=== PATIENT | male | born 1975 | race Caucasian/White ===

== ENCOUNTER 2023-08-04 12:51 | Emergency (ER) | payer OTHER, SELFPAY ==
[2023-08-04 13:02] VITALS: BP 131/86; PULSE 103; RESP 16; TEMP 36.7; O2SAT 98
[2023-08-04 13:11] LABS: Glucose Point of Care > 600 mg/dL (70-110)
[2023-08-04 13:23] LABS: Basophils # 0.1 10^3/uL (0.0-0.1); Basophils % 0.9 %; Eosinophils # 0.2 10^3/uL (0.0-0.8); Eosinophils % 2.6 %; Hematocrit 39.5 % (37-53); Lymphocytes # 1.2 10^3/uL (0.8-4.8); Lymphocytes % 21.1 %; Mean Corpuscular HGB Conc 32.2 g/dL (30-55); Mean Corpuscular Hemoglobin 23.1 pg (27-33); Mean Corpuscular Volume 71.9 fl (82-101); Monocytes # 0.4 10^3/uL (0.2-0.9); Monocytes % 6.9 %; Neutrophils # 3.92 10^3/uL (1.8-7.7); Neutrophils % 67.8 %; Nucleated Red Blood Cells % 0 %; Platelet Count 256 10^3/cmm (157-399); Red Blood Count 5.49 10^6/uL (3.85-5.65); White Blood Count 5.78 10^3/uL (3.29-11.43)
[2023-08-04 13:36] LABS: Ketone (Acetest) Serum Negative (Negative)
--- NOTE | 2023-08-04 13:39 | PC.NURSE ---
pt brought to room 12 @1330, fluids delayed d/t not being in room
[2023-08-04 13:42] LABS: Alanine Aminotransferase 71 U/L (0-41); Albumin Level 4.6 g/dL (3.5-5.2); Alkaline Phosphatase 105 U/L (40-130); Aspartate Amino Transferase 40 U/L (0-40); Blood Urea Nitrogen 25 mg/dL (6-20); Carbon Dioxide 24 mmol/L (22-29); Chloride 89 mmol/L (98-107); Creatinine Clr Calc Pharmacy 84.5583; Globulin 3.4 g/dL (1.3-4.6); Glomerular Filtration Rate 64.1 mL/min (90-130); Osmolality Calculated 293 mOsm/kg (285-295); Sodium 125 mmol/L (136-145); Total Bilirubin 0.2 mg/dL (0.15-1.2)
[2023-08-04 13:48] LABS: Glucose Point of Care > 600 mg/dL (70-110)
[2023-08-04 13:50] LABS: Glucose 614 mg/dL (65-115)
[2023-08-04] MEDS: sodium chloride 0.9% 1,000 ML 999 ML IV (13:50)
[2023-08-04] MEDS: insulin regular-human 100 units/1 mL 14 UNIT IVP (14:04)
[2023-08-04 14:08] LABS: ABG PCO2 34.8 mmHg (35-45); ABG PH Result 7.43 (7.35-7.45); Alveolar-Arterial Oxygen Gradi 3.5 mmHg (5-10); Arterial Blood Gas Hematocrit 35.4 % (42-52); Base Excess ABG -0.8 mmol/L (-2.0-2.0); Blood Gas Allen Test Pos; Blood Gas Operator Identificat glc; Blood Gas Sample Site Radial, left; Blood Gas Sample Type Arterial; Carboxyhemoglobin 1.3 %THgb (0.4-20.1); HCO3 ABG 23.1 mmol/L (22-26); HGB O2 Sat 94.7 % (95-100); Ionized Calcium Level - ABG 1.1 mmol/L (1.1-1.4); Methemoglobin 0.4 % (0.4-1.5); Oxygen Saturation ABG 96.4; PO2 ABG 78.9 mmHg (80.0-100.0); PO2 FiO2 Ratio Arterial Blood 0; Potassium Level - ABG 4.8 mmol/L (3.5-5.0); Total Hemoglobin 11.6 g/dL (14-18)
--- NOTE | 2023-08-04 14:13 | W.ED.RECABL ---
HPI - Recheck/Abnormal Lab/Rx General: Chief Complaint: Recheck/Abnormal Lab/Rx Stated Complaint: high blood sugar, low sodium, doctor referral Time Seen by Provider: 08/04/23 13:43 Source: patient Mode of arrival: ambulatory History of Present Illness: 48-year-old male presents emergency room structures primary care doctor he was hyponatremic and severely hyperglycemic state been monitoring him and is not primary care doctor's office for impaired glucose tolerance and diabetes blood sugars have generally been good. He recently has had polyphagia polydipsia and polyuria he has not had any abdominal pain nausea or vomiting he is not date of Service: Antihyperglycemic's. Review of Systems Const: Denies: fever(s) or chills Card: Denies: chest pain Resp: Denies: dyspnea GI: Denies: abdominal pain : Denies: dysuria, urinary frequency or urinary urgency Musc: Denies: neck pain or back pain Skin/Breast: Denies: rash Physical Exam Const: COMMON NORMALS: no acute distress GENERAL APPEARANCE: cooperative and comfortable ORIENTATION/CONSCIOUSNESS: Yes awake, Yes oriented to person, Yes oriented to place and Yes oriented to time HENMT: COMMON NORMALS: normocephalic, atraumatic and hearing grossly normal bilaterally HEAD & SCALP: normocephalic and atraumatic Resp: COMMON NORMALS: normal respiratory effort, No retractions, No use of accessory muscles and clear to auscultation bilaterally AUSCULTATION: clear to auscultation bilaterally Cardio: COMMON NORMALS: regular rate, regular rhythm and No murmurs present (Cardio) RATE: regular rate RHYTHM: regular rhythm GI: COMMON NORMALS: Soft to palpation and No hepatosplenomegaly present AUSCULTATION: Yes normoactive bowel sounds PALPATION: Yes Soft to palpation, No Tenderness to palpation present (GI), No Guarding due to palpation present (GI) and Yes No hepatosplenomegaly present Extremity: COMMON NORMALS: normal to inspection, capillary refill normal, no clubbing, cyanosis or edema, no calf tenderness and no pedal edema Neuro: SENSORIUM/ORIENTATION: Yes oriented to person, Yes oriented to place and Yes oriented to time Skin: COMMON NORMALS: no rashes or lesions noted GENERAL SKIN EXAM: no rashes or lesions noted Course Vital Signs: Vital signs: Vital Signs Temperature 98.0 F 08/04/23 13:02 Pulse Rate 103 H 08/04/23 13:02 Respiratory Rate 16 08/04/23 13:02 Blood Pressure 131/86 08/04/23 13:02 Pulse Oximetry 95 08/04/23 17:19 Oxygen Delivery Me thod Room Air 08/04/23 13:02 MDM - Recheck/Abnormal Lab/Rx Medical Decision Making Sodium corrects to 133 based on his hyperglycemia he is feeling well given fluids and insulin his blood sugars down to a little over 300 discussed findings with him he would really prefer to go home his anion gap is normal his ketones are negative his ABG was unremarkable for DKA. Will start the patient on Trulicity 0.75 weekly extended release metformin 500 once a day I called and talked to his primary care doctor they will make further arrangements for his blood glucose. Medical Records I reviewed the patient's medical records. Lab Data I reviewed the patient's lab results. 08/04/23 12:59 08/04/23 12:59 Laboratory Results WBC 5.78 10^3/uL (3.29-11.43) 08/04/23 12:59 RBC 5.49 10^6/uL (3.85-5.65) 08/04/23 12:59 Hgb 12.70 g/dL (11.27-16.99) 08/04/23 12:59 Hct 39.5 % (37-53) 08/04/23 12:59 MCV 71.9 fl (82-101) L 08/04/23 12:59 MCH 23.1 pg (27-33) L 08/04/23 12:59 MCHC 32.2 g/dL (30-55) 08/04/23 12:59 RDW 14.0 % (12.1-15.1) 08/04/23 12:59 Plt Count 256 10^3/cmm (157-399) 08/04/23 12:59 MPV 10.0 fL (7.4-10.4) 08/04/23 12:59 Neut % (Auto) 67.8 % 08/04/23 12:59 Lymph % (Auto) 21.1 % 08/04/23 12:59 [place] % (Auto) 6.9 % 08/04/23 12:59 Eos % (Auto) 2.6 % 08/04/23 12:59 Baso % (Auto) 0.9 % 08/04/23 12:59 Neut # (Auto) 3.92 10^3/uL (1.8-7.7) 08/04/23 12:59 Lymph # (Auto) 1.2 10^3/uL (0.8-4.8) 08/04/23 12:59 [place] # (Auto) 0.4 10^3/uL (0.2-0.9) 08/04/23 12:59 Eos # (Auto) 0.2 10^3/uL (0.0-0.8) 08/04/23 12:59 Baso # (Auto) 0.1 10^3/uL (0.0-0.1) 08/04/23 12:59 Nucleated RBC % (auto) 0 % 08/04/23 12:59 Nucleated RBCs # 0.0 /100WBC 08/04/23 12:59 Specimen Type Arterial 08/04/23 13:58 Sample Site Radial, left 08/04/23 13:58 ABG pH 7.43 (7.35-7.45) 08/04/23 13:58 ABG pCO2 34.8 mmHg (35-45) L 08/04/23 13:58 ABG pO2 78.9 mmHg (80.0-100.0) L 08/04/23 13:58 ABG PO2/FiO2 Ratio 0 08/04/23 13:58 ABG HCO3 23.1 mmol/L (22-26) 08/04/23 13:58 ABG O2 Saturation 96.4 08/04/23 13:58 ABG Base Excess -0.8 mmol/L (-2.0-2.0) 08/04/23 13:58 Lukas Test Pos 08/04/23 13:58 A-a O2 Gradient 3.5 mmHg (5-10) L 08/04/23 13:58 Hematocrit 35.4 % (42-52) L 08/04/23 13:58 Hgb O2 Saturation 94.7 % (95-100) L 08/04/23 13:58 Carboxyhemoglobin 1.3 %THgb (0.4-20.1) 08/04/23 13:58 Methemoglobin 0.4 % (0.4-1.5) 08/04/23 13:58 Total Hemoglobin 11.6 g/dL (14-18) L 08/04/23 13:58 Sodium 130.0 mmol/L (131-143) L 08/04/23 13:58 Potassium 4.8 mmol/L (3.5-5.0) 08/04/23 13:58 Glucose 563.0 mg/dL (70-115) H 08/04/23 13:58 Ionized Calcium 1.1 mmol/L (1.1-1.4) 08/04/23 13:58 O2 Delivery Device None 08/04/23 13:58 FiO2 21.0 % 08/04/23 13:58 Telecommunications Consultant ID glc 08/04/23 13:58 Sodium 125 mmol/L (136-145) L 08/04/23 12:59 Potassium 5.0 mmol/L (3.5-5.1) 08/04/23 12:59 Chloride 89 mmol/L (98-107) L 08/04/23 12:59 Carbon Dioxide 24 mmol/L (22-29) 08/04/23 12:59 Anion Gap 17.0 (5-19) 08/04/23 12:59 BUN 25 mg/dL (6-20) H 08/04/23 12:59 Creatinine 1.2 mg/dL (0.7-1.2) 08/04/23 12:59 GFR Calculation 64.1 mL/min (90-130) L 08/04/23 12:59 Glucose 614 mg/dL (65-115) H* 08/04/23 12:59 POC Glucose 234 mg/dL (70-110) H 08/04/23 17:01 Calculated Osmolality 293 mOsm/kg (285-295) 08/04/23 12:59 Calcium 10.0 mg/dL (8.5-10.5) 08/04/23 12:59 Total Bilirubin 0.2 mg/dL (0.15-1.2) 08/04/23 12:59 AST 40 U/L (0-40) 08/04/23 12:59 ALT 71 U/L (0-41) H 08/04/23 12:59 Alkaline Phosphatase 105 U/L (40-130) 08/04/23 12:59 Total Protein 8.0 g/dL (6.6-8.7) 08/04/23 12:59 Albumin 4.6 g/dL (3.5-5.2) 08/04/23 12:59 Globulin 3.4 g/dL (1.3-4.6) 08/04/23 12:59 Serum Ketones Negative (Negative) 08/04/23 12:59 All radiology interpretation(s) finalized by discharge Discharge Plan Discharge Patient Disposition: Home Clinical Impression: New onset type 2 diabetes mellitus Condition: Stable Prescriptions: New metformin 500 mg tablet extended release 24 hr 500 mg PO DAILY Qty: 30 0RF Trulicity 0.75 mg/0.5 mL pen injector 0.75 mg SUBCUT .Weekly Qty: 2 0RF (DME) lancets-blood glucose strips 30 gauge combo pack See Rx Instructions .Route Qty: 200 0RF Rx Instructions: As directed (DME) blood-glucose meter Kit See Rx Instructions .Route Qty: 1 0RF Rx Instructions: As directed No Action lisinopril 20 mg tablet 40 mg PO DAILY levothyroxine 25 mcg capsule 25 mcg PO DAILY Discharge Orders: Discharge ED (Routine); Ordered 08/04/23 Ordered By: Diego Moreno Referrals: Neha Tyson MD [Primary Care Provider] - Discharge Diet: Diabetic Discharge Activity: Resume usual activity Patient Instructions: How to Check your Blood Sugar (ED), Type 2 Diabetes Management for Adults (ED), Opioid Safety, Pain Management Activity Restrictions/Additional Instructions: Thank you for choosing [facility] for your healthcare needs today. It is very important that you follow up as instructed or that you return to the Emergency Department should you have concerns or if your condition changes or worsens in any way. You were seen today for elevated blood sugars. Your blood sugar did improve with fluids and insulin. Recommend starting metformin once daily 500 mg as well as Trulicity 1 shot per week. While this will lower your blood sugars it is not likely to completely control them. You should follow-up with your doctor within a week for further titration of your diabetic medications. Return to the emergency room if you have further problems. Coding Level of Care Code ED [employer] for Javier Jackson
--- NOTE | 2023-08-04 15:05 | PC.NURSE ---
Glucose via fingerstick 338 @1502
[2023-08-04 15:08] LABS: Glucose Point of Care 338 mg/dL (70-110)
[2023-08-04 15:35] VITALS: O2SAT 95
[2023-08-04 16:31] LABS: Glucose Point of Care 339 mg/dL (70-110)
[2023-08-04] MEDS: insulin regular-human 100 units/1 mL 10 UNIT IVP (16:32)
--- NOTE | 2023-08-04 16:33 | PC.NURSE ---
Glucose via fingerstick 339 @7885
[2023-08-04 17:04] LABS: Glucose Point of Care 234 mg/dL (70-110)
--- NOTE | 2023-08-04 17:18 | PC.NURSE ---
Glucose via fingerstick 232, Dr. Moreno notified.
[2023-08-04 17:19] VITALS: O2SAT 95
== END 2023-08-04 17:19 | disposition home or self-care (01) ==
PROVIDERS: Emergency Provider Family Medicine; PCP Family Medicine
DX: E11.9 Type 2 diabetes mellitus without complications (principal)
CPT/HCPCS: 36415; 36416; 36600; 80051; 80053; 82009; 82330; 82805; 82962; 85025; 96374; 96376; 99284; J1815; J7030